=== PATIENT | male | born 1995 | race Caucasian/White ===

== ENCOUNTER 2019-12-30 14:28 | Emergency (ER) | payer OTHER ==
[~2019-12-30] VITALS: Ht 175.3 cm; Wt 74.8 kg
[2019-12-30 15:21] VITALS: BP 136/80
[2019-12-30] MEDS ORDERED: LIDOCAINE MPF 1% 10 MG/ML VIAL INJ ONE (15:45)
[2019-12-30] MEDS ORDERED: BACITRACIN OINT 500 UNITS/GM PKT TP ONE (15:45)
--- NOTE | 2019-12-30 16:54 | NUR ---
Note undone in EDM - 12/30/19 at 1655 by VANNESA Patient discharged with v/s stable by Debora SNOW. No nursing care provided in the ER. Written and verbal after care instructions given and explained. Patient alert, oriented and verbalized understanding of instructions. Ambulatory with steady gait. All questions addressed prior to discharge. ID band removed. Patient advised to follow up with PMD. Rx of Bacitracin given. Patient educated on indication of medication including possible reaction and side effects. Opportunity to ask questions provided and answered.
== END 2019-12-30 16:54 | disposition home or self-care (01) ==
LOC: MED 14:28
DX: S91.312A Laceration without foreign body, left foot, initial encounter (principal); X58.XXXA Exposure to other specified factors, initial encounter; Y93.89 Activity, other specified; Y92.89 Other specified places as the place of occurrence of the external cause; Y99.8 Other external cause status
CPT/HCPCS: 12001; 99282; J2001

== ENCOUNTER 2020-01-21 10:26 | Emergency (ER) | payer OTHER ==
[~2020-01-21] VITALS: Ht 175.3 cm; Wt 75.8 kg
[2020-01-21 10:48] VITALS: BP 118/67
--- NOTE | 2020-01-21 10:59 | NUR ---
24 YO MALE CO WART ON SOLE OF LEFT FOOT X1M. PT STATED THAT HE HAD IT TREATED HERE BUT IT HAS NOT IMPROVED. NO PMH AND NO RX
--- NOTE | 2020-01-21 11:05 | NUR ---
dr kwon at chair side evaluating pt.
[2020-01-21 11:09] VITALS: BP 118/67
--- NOTE | 2020-01-21 11:10 | NUR ---
Patient discharged with v/s stable. Written and verbal after care instructions given and explained. Patient verbalized understanding. Ambulatory with steady gait. All questions addressed prior to discharge. Advised to follow up with PMD.
== END 2020-01-21 11:10 | disposition home or self-care (01) ==
LOC: MED 10:26
DX: B07.0 Plantar wart (principal)
CPT/HCPCS: 99281